=== PATIENT | male | born 1990 | race Caucasian/White ===

== ENCOUNTER 2017-06-05 11:25 | Emergency (ER) | payer OTHER ==
[~2017-06-05] VITALS: Ht 167.6 cm; Wt 68.0 kg
[2017-06-05] MEDS ORDERED: BUPRENORPHINE HY2 MG SL (11:36)
[2017-06-05] MEDS ORDERED: PHENOBARBITAL60 MG PO (11:37)
[2017-06-05 12:14] LABS: BUN 11 mg/dl (7-24); CHLORIDE 105 mmol/L (98-107); CREATININE 0.79 mg/dL (0.70-1.30); POTASSIUM 4.4 mmol/L (3.5-5.1); SODIUM 141 mmol/L (136-145)
== END 2017-06-05 12:36 | disposition home or self-care (01) ==
LOC: ED 11:25
PROVIDERS: Emergency Medicine
DX: R00.1 Bradycardia, unspecified (principal)

== ENCOUNTER 2017-09-30 16:54 | Inpatient (IN) | payer OTHER ==
[~2017-09-30] VITALS: Ht 167.6 cm; Wt 63.5 kg
[~2017-09-30 16:54] MED LIST: BUPRENORPHINE HY2 MG SL; PHENOBARBITAL60 MG PO
[2017-09-30 17:06] VITALS: BP 124/80
[2017-09-30 17:28] LABS: BASO % 0.6 % (0.0-1.0); EOS # 0.3 10*3/uL (0.0-0.4); EOS % 4.7 % (1.0-4.0); HEMATOCRIT 37.5 % (42.0-52.0); HEMOGLOBIN 12.2 g/dl (14.0-18.0); LYMPH # 3.4 10*3/uL (1.3-4.4); LYMPH % 54.4 % (27.0-41.0); MEAN CELL VOLUME 88.2 fl (80.0-94.0); MEAN CORPUSCULAR HGB 28.7 pg (27.0-31.0); MEAN CORPUSCULAR HGB CONC 32.5 g/dl (33.0-37.0); MONO # 0.5 10*3/uL (0.1-1.0); MONO % 7.7 % (3.0-9.0); NEUT % 32.4 % (47.0-73.0); PLATELET COUNT AUTOMATED 192 10*3/uL (130-400); RED BLOOD COUNT 4.25 10*6/uL (4.50-5.90); RED CELL DISTRI WIDTH 14.3 % (0-14.5); WHITE BLOOD COUNT 6.2 10*3/uL (4.8-10.8)
[2017-09-30 17:37] LABS: ACT PARTIAL THROMBO TIME 25.4 SECONDS (20.8-31.5)
[2017-09-30 17:44] LABS: ALBUMIN 3.4 gm/dl (3.1-4.5); ALKALINE PHOSPHATASE 57 U/L (45-117); BUN 17 mg/dl (7-24); CHLORIDE 108 mmol/L (98-107); CREATININE 1.08 mg/dL (0.70-1.30); POTASSIUM 3.7 mmol/L (3.5-5.1); SGOT/AST 38 IU/L (3-35); SGPT/ALT 30 U/L (12-78); SODIUM 142 mmol/L (136-145); TOTAL PROTEIN 6.9 gm/dL (6.4-8.2)
[2017-09-30 17:45] LABS: ETHYL ALCOHOL < 3.0 mg/dl (<3)
[2017-09-30 18:30] VITALS: BP 119/69
[2017-09-30 18:51] LABS: URINE AMPHETAMINES < 1000 (1000ng/ml); URINE BARBITURATES < 200 (200ng/ml); URINE BENZODIAZEPINES < 200 (200ng/ml); URINE CANNABINOIDS (THC) > 50 (50ng/ml); URINE COCAINE > 300 (300ng/ml); URINE METHADONE > 300 (300ng/ml); URINE OPIATES < 300 (300ng/ml)
[2017-09-30 18:54] LABS: URINE PHENCYCLIDINE < 25 (25ng/ml)
[2017-09-30] MEDS ORDERED: NEURONTIN800 MG PO (18:57)
[2017-09-30] MEDS ORDERED: METHADONE HYDRO40 M1 PO (18:58)
[2017-09-30] MEDS ORDERED: VYVANSE50 MG PO (19:01)
[2017-09-30 20:00] VITALS: BP 110/59
[2017-10-01] VITALS: BP 106/56
[2017-10-01 08:00] VITALS: BP 90/51
[2017-10-01 12:00] VITALS: BP 103/65
[2017-10-01 16:00] VITALS: BP 111/59
[2017-10-01 20:00] VITALS: BP 110/53
[2017-10-02] VITALS: BP 100/62
[2017-10-02 08:00] VITALS: BP 111/79
[2017-10-02 12:00] VITALS: BP 106/70
[2017-10-02 16:00] VITALS: BP 111/63
[2017-10-02 20:00] VITALS: BP 96/58
[2017-10-03 00:19] VITALS: BP 104/56
[2017-10-03 08:00] VITALS: BP 114/59
[2017-10-03] MEDS ORDERED: DICYCLOMINE HCL20 MG PO (10:05)
[2017-10-03] MEDS ORDERED: METHOCARBAMOL750 M1 PO (10:05)
[2017-10-03] MEDS ORDERED: DOXYCYCLINE MO100 M1 PO (10:05)
== END 2017-10-03 11:35 | disposition home or self-care (01) | DRG 897 ==
LOC: ED 16:54 → EDHOLD 17:18 → 4E 17:18
PROVIDERS: Emergency Medicine
DX: F11.23 Opioid dependence with withdrawal (principal); E87.8 Other disorders of electrolyte and fluid balance, not elsewhere classified; F10.29 Alcohol dependence with unspecified alcohol-induced disorder; D64.9 Anemia, unspecified; B18.2 Chronic viral hepatitis C; S61.011A Laceration without foreign body of right thumb without damage to nail, initial encounter; F10.239 Alcohol dependence with withdrawal, unspecified; F12.10 Cannabis abuse, uncomplicated; F41.9 Anxiety disorder, unspecified; R00.1 Bradycardia, unspecified; R74.0 Nonspecific elevation of levels of transaminase and lactic acid dehydrogenase [LDH]; R73.9 Hyperglycemia, unspecified; Z71.6 Tobacco abuse counseling; F19.10 Other psychoactive substance abuse, uncomplicated; F14.10 Cocaine abuse, uncomplicated; Z83.79 Family history of other diseases of the digestive system; Z79.899 Other long term (current) drug therapy; W26.8XXA Contact with other sharp object(s), not elsewhere classified, initial encounter; Y93.89 Activity, other specified; Y92.89 Other specified places as the place of occurrence of the external cause; Y99.8 Other external cause status

== ENCOUNTER 2018-03-26 10:08 | Inpatient (IN) | payer OTHER ==
[~2018-03-26] VITALS: Ht 167.6 cm; Wt 67.7 kg
--- NOTE | ~2018-03-26 | EKG ---
[place], [place] ELECTROCARDIOGRAM REPORT NAME: CHAPARRITA ROMO UNIT #: [id number] ROOM: 529 DOCTOR: OREN DRAFT REPORT BIRTHDATE: [birth year] [facility] Test Date: 2018-03-26 Test Time: 11:32:05 Pat Name: CHAPARRITA ROMO Department: Room: 529 Gender: M Radiation Control Specialist: Indy Beard : 1990 Requested By: DOV SOW Order Number: [id number] Reading MD: Bradley Mcnamara MD Measurements Intervals Ernul Rate: 46 P: 44 [place]: 138 QRS: 77 QRSD: 101 T: 57 QT: 514 QTc: 450 Interpretive Statements Sinus bradycardia with sinus arrhythmia Nonspecific T abnormalities, anterior leads Electronically Signed On 03-26-2018 18:15:30 PST by Bradley Mcnamara MD CM:EKGRPT:ELECTROCARDIOGRAM REPORT [id number] DOV LOTT DRAFT REPORT DOV SOW MD
[~2018-03-26 10:08] MED LIST changes: +DICYCLOMINE HCL20 MG PO; +DOXYCYCLINE MO100 M1 PO; +METHADONE HYDRO40 M1 PO; +METHOCARBAMOL750 M1 PO; +NEURONTIN800 MG PO; +VYVANSE50 MG PO
[2018-03-26 10:12] VITALS: BP 127/67
[2018-03-26] MEDS ORDERED: GABAPENTIN800 MG PO (10:19)
[2018-03-26 10:52] LABS: URINE AMPHETAMINES > 1000 (1000ng/ml); URINE BARBITURATES > 200 (200ng/ml); URINE BENZODIAZEPINES < 200 (200ng/ml); URINE CANNABINOIDS (THC) > 50 (50ng/ml); URINE COCAINE > 300 (300ng/ml); URINE METHADONE > 300 (300ng/ml); URINE OPIATES < 300 (300ng/ml)
[2018-03-26 10:53] LABS: BASO % 0.4 % (0.0-1.0); EOS # 0.3 10*3/uL (0.0-0.4); HEMATOCRIT 38.4 % (42.0-52.0); HEMOGLOBIN 12.9 g/dl (14.0-18.0); LYMPH # 2.4 10*3/uL (1.3-4.4); LYMPH % 34.6 % (27.0-41.0); MEAN CELL VOLUME 88.3 fl (80.0-94.0); MEAN CORPUSCULAR HGB 29.7 pg (27.0-31.0); MEAN CORPUSCULAR HGB CONC 33.6 g/dl (33.0-37.0); MEAN PLATELET VOLUME 10.2 fl (9.6-12.3); MONO # 0.6 10*3/uL (0.1-1.0); MONO % 8.9 % (3.0-9.0); NEUT # 3.6 10*3/uL (2.3-7.9); PLATELET COUNT AUTOMATED 236 10*3/uL (130-400); RED BLOOD COUNT 4.35 10*6/uL (4.50-5.90); RED CELL DISTRI WIDTH 13.4 % (0-14.5)
[2018-03-26 10:57] LABS: URINE PHENCYCLIDINE < 25 (25ng/ml)
[2018-03-26 11:02] LABS: ALBUMIN 3.6 gm/dl (3.1-4.5); ALKALINE PHOSPHATASE 61 U/L (45-117); BUN 18 mg/dl (7-24); CHLORIDE 104 mmol/L (98-107); CREATININE 0.95 mg/dL (0.70-1.30); POTASSIUM 3.4 mmol/L (3.5-5.1); SGOT/AST 40 IU/L (3-35); SGPT/ALT 42 U/L (12-78); SODIUM 138 mmol/L (136-145); TOTAL PROTEIN 7.3 gm/dL (6.4-8.2)
[2018-03-26 11:12] LABS: ETHYL ALCOHOL < 3.0 mg/dl (<3)
[2018-03-26 11:40] VITALS: BP 113/66
[2018-03-26] MEDS ORDERED: Methadone Hydro10 MG PO (12:24)
[2018-03-26 16:00] VITALS: BP 112/66
[2018-03-26 18:44] LABS: BILIRUBIN NEGATIVE (NEGATIVE); BLOOD NEGATIVE (NEGATIVE); CLARITY CLEAR (CLEAR); COLOR YELLOW (YELLOW); GLUCOSE NEGATIVE (NEGATIVE); KETONE NEGATIVE (NEGATIVE); LEUKO ESTERASE NEGATIVE (NEGATIVE); NITRITE NEGATIVE (NEGATIVE); PH 6.5 (5.0-9.0); SPECIFIC GRAVITY 1.025 (1.005-1.030)
[2018-03-26 19:17] LABS: MUCOUS TRACE
[2018-03-26 20:00] VITALS: BP 113/63
[2018-03-27] VITALS: BP 101/60
[2018-03-27 07:09] LABS: HEPATITIS B SURFACE AG Negative (Negative)
[2018-03-27 08:00] VITALS: BP 88/52
[2018-03-27 08:43] LABS: HEPATITIS C VIRUS ANTIBODY >11.0 s/co (0.0-0.9)
[2018-03-27 12:00] VITALS: BP 112/63
[2018-03-27 16:00] VITALS: BP 118/67
[2018-03-27 20:00] VITALS: BP 115/76
[2018-03-28] VITALS: BP 118/68
[2018-03-28 12:00] VITALS: BP 121/74
[2018-03-28 16:00] VITALS: BP 125/70
[2018-03-28 20:00] VITALS: BP 118/82
[2018-03-29] VITALS: BP 121/73
[2018-03-29 12:00] VITALS: BP 110/63
[2018-03-29 16:00] VITALS: BP 118/74
[2018-03-29 20:00] VITALS: BP 118/58
[2018-03-30] VITALS: BP 95/56
[2018-03-30 08:00] VITALS: BP 118/72
[2018-03-30 12:00] VITALS: BP 110/70
[2018-03-30 16:00] VITALS: BP 122/70
[2018-03-30 20:00] VITALS: BP 117/65
[2018-03-31] VITALS: BP 117/73
[2018-03-31 08:00] VITALS: BP 110/81
[2018-03-31] MEDS ORDERED: ATARAX,VISTARIL50 MG PO (10:30)
[2018-03-31 12:00] VITALS: BP 110/74
== END 2018-03-31 13:24 | DRG 897 ==
LOC: ED 10:08 → EDHOLD 11:15 → 5E 11:15
PROVIDERS: Emergency Medicine; Student in an Organized Health Care Education/Training Program
DX: F11.23 Opioid dependence with withdrawal (principal); F19.10 Other psychoactive substance abuse, uncomplicated; F10.239 Alcohol dependence with withdrawal, unspecified; D64.9 Anemia, unspecified; E87.6 Hypokalemia; F17.200 Nicotine dependence, unspecified, uncomplicated; R73.9 Hyperglycemia, unspecified; F41.9 Anxiety disorder, unspecified; R00.1 Bradycardia, unspecified; F14.10 Cocaine abuse, uncomplicated; B19.20 Unspecified viral hepatitis C without hepatic coma; Z71.6 Tobacco abuse counseling; Z83.79 Family history of other diseases of the digestive system; Z84.89 Family history of other specified conditions